=== PATIENT | male | born 2000 | race Caucasian/White ===

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

== ENCOUNTER 2023-09-15 10:06 | Inpatient (IN) ==
[2023-09-15 12:38] LABS: Urine Appearance Clear; Urine Bilirubin Negative (Negative); Urine Blood Negative (Negative); Urine Color Light-Yellow; Urine Glucose Negative (Negative); Urine Ketones Negative (Negative); Urine Nitrite Negative (Negative); Urine Protein Negative (Negative); Urine Specific Gravity 1.012 (1.002-1.030); Urine Urobilinogen Negative (Negative)
[2023-09-15 12:44] LABS: ABS Eosinophils 0.1 10^3/uL (0.0-0.5); ABS Lymphocytes 1.5 10^3/uL (1.0-4.8); ABS Monocytes 0.6 10^3/uL (0.0-1.1); ABS Neutrophils 3.1 10^3/uL (1.5-7.6); Hematocrit 41.6 % (38-53); Hemoglobin 14.2 g/dL (13.2-16.3); Lymphocyte % 28.7 %; Mean Corpuscular Hemoglobin 31.9 pg (27-33); Mean Corpuscular Hgb Conc 34.1 g/dL (31-36); Mean Corpuscular Volume 93.5 fL (80-97); Mean Platelet Volume 8.3 fL (7.5-11.2); Platelet Count 224 10^3/uL (150-450); Red Blood Count 4.45 10^6/uL (4.06-5.63); Red Cell Distribution Width 13.8 % (12-17); White Blood Count 5.3 10^3/uL (3.6-10.2)
[2023-09-15] MEDS ORDERED: Al Hydrox/Mg Hydrox/Simet LIQ 30 ML UDC PO PRN (12:56)
[2023-09-15 12:58] LABS: Urine Benzodiazepine Screen None Detected (None Detect); Urine Cannabinoids Screen Presumptive Positive (None Detect); Urine Opiates Screen None Detected (None Detect)
[2023-09-15 13:33] LABS: Albumin 4.3 g/dL (3.2-5.2); Albumin/Globulin Ratio 2.3 (1-3); Calcium 9.1 mg/dL (8.6-10.3); Creatinine, Serum 0.84 mg/dL (0.67-1.17); Globulin 1.9 g/dL (2-4); Potassium 4.3 mmol/L (3.5-5.0); Total Bilirubin 0.3 mg/dL (0.2-1.0); Total Protein 6.2 g/dL (6.4-8.9); eGFR CKD-EPI 126.4 (>60)
[2023-09-15] MEDS ORDERED: LORazepam 2 mg VIAL 1 ml IM ONE (14:45)
[2023-09-15] MEDS ORDERED: Lorazepam PYXIS KEY PRN (14:45)
[2023-09-15] MEDS: LORazepam 2 MG/ML 1 mL Syringe ONE (14:58)
[2023-09-15] MEDS: LORazepam 2 MG/ML 1 mL Syringe IM ONE (14:58)
[2023-09-15] MEDS: Haloperidol 5 mg/ml SDV IV/IM 5 MG/ML AMP IM ONE (14:58)
[2023-09-15] MEDS: Haloperidol 5 mg/ml SDV IV/IM 5 MG/ML AMP ONE (14:58)
[2023-09-16] MEDS: Nicotine PATCH 21 MG/24 HR PATCH TRANSDERM SCH (11:08)
[2023-09-16] MEDS: Nicotine GUM 2MG FRUIT FLAVOR PO PRN (11:09)
[2023-09-16] MEDS: Nicotine GUM 4MG FRUIT FLAVOR PO PRN (20:54)
[2023-09-18 08:27] LABS: HDL Cholesterol 45.3 mg/dL
[2023-09-19 09:29] VITALS: BP 125/69
== END 2023-09-19 13:00 | disposition home or self-care (01) | DRG 351 ==
LOC: ED 10:06 → EDHOLD 12:56 → BSU 13:52
PROVIDERS: ADMIT Psychiatry & Neurology Psychiatry; ATTEND Psychiatry & Neurology Psychiatry

== ENCOUNTER 2024-02-27 22:14 | Inpatient (IN) ==
[2024-02-27 23:13] LABS: ABS Lymphocytes 1.4 10^3/uL (1.0-4.8); ABS Monocytes 0.8 10^3/uL (0.0-1.1); ABS Neutrophils 6.7 10^3/uL (1.5-7.6); ABS Nucleated RBC 0.01 10^3/ul; Eosinophil % 0.2 %; Hematocrit 44.4 % (38-53); Hemoglobin 15.5 g/dL (13.2-16.3); Lymphocyte % 15.6 %; Mean Corpuscular Hemoglobin 32.3 pg (27-33); Mean Corpuscular Hgb Conc 34.9 g/dL (31-36); Mean Corpuscular Volume 92.8 fL (80-97); Mean Platelet Volume 8.4 fL (7.5-11.2); Nucleated Red Blood Cells % 0.1 %/100WBC (0.0-0.8); Platelet Count 224 10^3/uL (150-450); Red Blood Count 4.79 10^6/uL (4.06-5.63); Red Cell Distribution Width 13.5 % (12-17); White Blood Count 8.9 10^3/uL (3.6-10.2)
[2024-02-27 23:24] LABS: Urine Appearance Clear; Urine Bilirubin Negative (Negative); Urine Blood Negative (Negative); Urine Color Colorless; Urine Glucose Negative (Negative); Urine Ketones Negative (Negative); Urine Nitrite Negative (Negative); Urine Protein Negative (Negative); Urine Specific Gravity 1.004 (1.002-1.030); Urine Urobilinogen Negative (Negative)
[2024-02-27 23:51] LABS: Anion Gap 7 mmol/L (2-16); Blood Urea Nitrogen 7 mg/dL (6-24); CO2 Carbon Dioxide 30 mmol/L (22-32); Chloride 103 mmol/L (101-111); Glucose 85 mg/dL (70-100); Potassium 3.8 mmol/L (3.5-5.0); Sodium 140 mmol/L (135-145)
[2024-02-27 23:52] LABS: ALT 42 U/L (7-52); AST 32 U/L (13-39); Acetaminophen < 15 mcg/mL; Albumin 5.1 g/dL (3.5-5.7); Albumin/Globulin Ratio 2.2 (1-3); Alcohol, S < 13 mg/dL (<13); Alkaline Phosphatase 70 U/L (35-149); Calcium 10.4 mg/dL (8.6-10.3); Globulin 2.3 g/dL (2-4); Salicylate < 2.50 mg/dL (<30); Total Bilirubin 0.8 mg/dL (0.2-1.0); Total Protein 7.4 g/dL (6.4-8.9); eGFR CKD-EPI 123.8 (>60)
[2024-02-27 23:56] LABS: Urine Benzodiazepine Screen None Detected (None Detect); Urine Cannabinoids Screen Presumptive Positive (None Detect); Urine Opiates Screen None Detected (None Detect)
[2024-02-28] MEDS ORDERED: Al Hydrox/Mg Hydrox/Simet LIQ 30 ML UDC PO PRN (00:06)
[2024-02-28] MEDS: Nicotine GUM 2MG FRUIT FLAVOR PO PRN (01:08)
[2024-02-28] MEDS: Nicotine GUM 2MG FRUIT FLAVOR PO ONE (01:11)
[2024-02-28] MEDS: Nicotine PATCH 7 MG/24 HR PATCH TRANSDERM SCH (08:20)
[2024-02-28] MEDS: Vitamin THERAPEUTIC TAB PO SCH (08:21)
[2024-02-29 07:55] LABS: HDL Cholesterol 42.9 mg/dL
[2024-02-29 10:17] VITALS: BP 142/92
== END 2024-02-29 13:45 | disposition home or self-care (01) | DRG 755 ==
LOC: ED 22:14 → EDHOLD 02-28 00:17 → BSU 02-28 00:47
PROVIDERS: ADMIT Psychiatry & Neurology Psychiatry; ATTEND Psychiatry & Neurology Psychiatry